=== PATIENT | female | born 1975 | race Caucasian/White ===

== ENCOUNTER 2016-11-17 12:03 | Day surgery (SDC) | payer BC ==
[~2016-11-17] VITALS: Ht 168.9 cm; Wt 62.6 kg
[~2016-11-17 12:03] MED LIST: AGILEASE PO; ANTIOXIDANT PO; BENTYL10 MG PO; CYMBALTA60 MG PO; LEVAQUIN500 MG PO; NORCO 5/3251 TABLET PO; OTEZLA30 MG PO; PROZAC40 MG PO; RELPAX40 MG PO; REMICADE10 MG/ML IV; SEROQUEL12.5 MG PO; SEROQUEL50 MG PO; SORIATANE25 MG PO; TOPAMAX100 MG PO; TOPAMAX50 MG PO; ZOFRAN4 MG PO; [UNRECOGNIZED DRUG - OTHER] PO; [UNRECOGNIZED DRUG - OTHER] PO
== END 2016-11-17 13:47 | disposition home or self-care (01) ==
LOC: PAIN 12:03 → SDC 12:30 → PAIN 13:47
DX: M47.26 Other spondylosis with radiculopathy, lumbar region (principal); M51.16 Intervertebral disc disorders with radiculopathy, lumbar region; M51.06 Intervertebral disc disorders with myelopathy, lumbar region; M41.9 Scoliosis, unspecified; R53.82 Chronic fatigue, unspecified; F41.8 Other specified anxiety disorders; I10 Essential (primary) hypertension; K21.9 Gastro-esophageal reflux disease without esophagitis; D68.51 Activated protein C resistance; D66 Hereditary factor VIII deficiency; F42.9 Obsessive-compulsive disorder, unspecified; Z82.49 Family history of ischemic heart disease and other diseases of the circulatory system; Z83.42 Family history of familial hypercholesterolemia; Z83.49 Family history of other endocrine, nutritional and metabolic diseases; Z83.3 Family history of diabetes mellitus; Z87.891 Personal history of nicotine dependence
CPT/HCPCS: J1030; J2250; J3010; S0020

== ENCOUNTER 2016-11-24 11:47 | Day surgery (SDC) | payer BC ==
[~2016-11-24] VITALS: Ht 168.9 cm; Wt 62.6 kg
[2016-11-25] MEDS ORDERED: REGLAN5 MG PO (17:00)
[2016-11-25] MEDS ORDERED: MOTRIN600 MG PO (17:00)
== END 2016-11-24 13:21 | disposition home or self-care (01) ==
LOC: PAIN 11:47 → SDC 12:30 → PAIN 13:21
DX: M47.16 Other spondylosis with myelopathy, lumbar region (principal); M51.06 Intervertebral disc disorders with myelopathy, lumbar region; M54.5 Low back pain; M96.1 Postlaminectomy syndrome, not elsewhere classified; F41.8 Other specified anxiety disorders; K21.9 Gastro-esophageal reflux disease without esophagitis; D68.51 Activated protein C resistance; D66 Hereditary factor VIII deficiency; Z87.891 Personal history of nicotine dependence; I10 Essential (primary) hypertension
CPT/HCPCS: J1030; J2250; J3010; S0020

== ENCOUNTER 2016-11-25 13:02 | Emergency (ER) | payer BC ==
[~2016-11-25] VITALS: Ht 167.6 cm; Wt 65.1 kg
[2016-11-25 14:46] LABS: EOSINOPHIL (%) 0.2 % (0-5); HEMATOCRIT 40.8 % (36.0-46.0); IMMATURE GRANULOCYTE (%) 0.3 % (0.0-0.7); INSTRUMENT ABS NEUTROPHIL CT 7.9 K/uL; LYMPHOCYTE COUNT 2.8 K/uL (1.0-2.8); MCH 29.7 PG (29.0-34.0); MCHC 33.6 G/DL (30.0-36.0); MCV 88.5 FL (83-99); MEAN PLAT.VOLUME 8.7 uM^3 (9.5-12.4); MONOCYTE (%) 5.9 % (3-12); MONOCYTE COUNT 0.7 K/uL (0-0.8); NEUTROPHIL (%) 68.7 % (45-76); NEUTROPHIL COUNT 7.9 K/uL (1.8-6.4); PLATELET COUNT 354 K/uL (156-360); RBC DIS.WIDTH-CV 12.5 % (11.8-14.6); RBC DIS.WIDTH-SD 40.4 % (39-53); RED BLOOD COUNT 4.61 M/uL (3.80-5.20); WHITE BLOOD COUNT 11.5 K/uL (4.1-10.2)
[2016-11-25 14:55] LABS: CHLORIDE 110 mEq/L (99-109); POTASSIUM 3.7 mEq/L (3.7-5.4); SODIUM 140 mEq/L (136-147)
[2016-11-25 14:58] LABS: GLUCOSE 104 mg/dL (70-99)
[2016-11-25 14:59] LABS: ANION GAP 8 MEQ/L (2-14)
[2016-11-25 15:00] LABS: TOTAL BILIRUBIN 0.4 mg/dL (0.0-1.0)
[2016-11-25 15:01] LABS: ALKALINE PHOSPHATASE 57 IU/L (3-129); GFR ESTIMATE (CALCULATED) > 59 mL/min/
[2016-11-25 15:02] LABS: UREA NITROGEN (BUN) 13 mg/dL (9-23)
[2016-11-25] MEDS ORDERED: MOTRIN600 MG PO (17:00)
[2016-11-25] MEDS ORDERED: REGLAN5 MG PO (17:00)
[2016-11-25 17:09] VITALS: BP 125/69
== END 2016-11-25 17:14 | disposition home or self-care (01) ==
LOC: EME 13:02
PROVIDERS: Physician Assistant
DX: R51 Headache (principal); Z98.890 Other specified postprocedural states; I10 Essential (primary) hypertension; Z87.891 Personal history of nicotine dependence
CPT/HCPCS: 80053; 81003; 85025; 99281; 99285; J1885; J2765; J7120